=== PATIENT | female | born 1975 | race American Indian/Alaskan Native ===

== ENCOUNTER 2017-11-16 19:42 | Emergency (ER) | payer OTHER ==
[2017-11-16 20:12] VITALS: TEMP 98.3; O2SAT 99
--- NOTE | 2017-11-16 21:14 | C.PDOC ---
Addendum entered and electronically signed by Meghan Aguilar PA 11/16/17 23:20: History Of Present Illness 42 y/o female with no significant PMHx, presents to the ED for evaluation of right shoulder pain developed just prior to arrival while at work. Patient reports that she was trying to reach something on a top shelf when she suddenly developed severe pain. Also states I dislocated my shoulder and was able to put it back. Presently patient appears anxious, and in a lot of pain. Otherwise patient denies any fall, obvious deformity, weakness to right arm, or sensorivascular deficits. Time Seen by Provider: 11/16/17 20:10 Chief Complaint (Nursing): Upper Extremity Problem/Injury History Per: Patient History/Exam Limitations: no limitations Onset/Duration Of Symptoms: Hrs Current Symptoms Are (Timing): Still Present Severity: Severe Exacerbating Factor(s): Strenuous Use Of Affected Area Original Note: Time Seen by Provider: 11/16/17 20:10 Chief Complaint (Nursing): Upper Extremity Problem/Injury Past Medical History Reviewed: Historical Data, Nursing Documentation, Vital Signs Vital Signs: Last Vital Signs Temp 98.3 F 11/16/17 20:09 Pulse 73 11/16/17 20:09 Resp 19 11/16/17 20:09 BP 172/103 H 11/16/17 20:09 Pulse Ox 99 11/16/17 20:09 - Medical History PMH: Asthma Family History: States: No Known Family Hx Denies: [place], CAD - Social History Hx Tobacco Use: Yes Hx Alcohol Use: Yes Hx Substance Use: Yes - Immunization History Hx Tetanus Toxoid Vaccination: No Hx Influenza Vaccination: No Hx Pneumococcal Vaccination: No Review Of Systems Except As Marked, All Systems Reviewed And Found Negative. Eyes: Negative for: Vision Change ENT: Negative for: Throat Pain Cardiovascular: Negative for: Chest Pain, Palpitations, Edema, Light Headedness Respiratory: Negative for: Shortness of Breath Gastrointestinal: Negative for: Nausea, Vomiting, Abdominal Pain Musculoskeletal: Positive for: Shoulder Pain Skin: Negative for: Rash Neurological: Negative for: Weakness, Numbness, Altered Mental Status, Headache, Dizziness Physical Exam - Physical Exam Appears: Well, Non-toxic, No Acute Distress Skin: Normal Color, Warm, No Ecchymosis Head: Normacephalic Eye(s): bilateral: PERRL Neck: Trachea Midline, No Midline Cervical Tenderness, No Paracervical Tenderness, No Step Off Deformity, Supple Chest: Symmetrical, No Deformity Cardiovascular: Rhythm Regular, No Murmur, No JVD Respiratory: No Decreased Breath Sounds, No Accessory Muscle Use, No Stridor, No Wheezing Extremity: Normal ROM (mod discomfort to Right shoulder abduction/extension due to pain), Tenderness (mod tenderness superior aspect Right shoulder), No Deformity, No Swelling Neurological/Psych: Oriented x3, Normal Speech, Normal Motor, Normal Sensation, Normal Reflexes ED Course And Treatment O2 Sat by Pulse Oximetry: 99 Pulse Ox Interpretation: Normal - Other Rad Right shoulder X-Ray: Interpreted by Me, Viewed By Me Interpretation: (-) acute fx or dislocation, (+) calcification Progress Note: On re-eval, pt is faebrile, hemodynamicaly stable. Non-toxic. Ambulatory in ED with stable gait. Neck: SUpple, (-) JVD, (-) carotid bruits, (-) midline tenderness. Lungs: CTA B/L, BS equyal B/L. CVS: (+)S1S2, reg, (-) murmur. Abd: benign. Right shoulder: mild discomofrt to Right shoulder extension/abduction due to pain, no neurovascular deficits distally to injury, no defomrity.,. Neurologicaly intact. Rt shoulder xray (-) acute fx or dislocation. Sling applied to Right arm. Noted high BP on triage. Pt denies previou shx of HTN, denies taking medication. Pt sts, " very worry about my shoulder now". Pt advised to F/U with PMD in 1-2 dyas to re-checl BP. return to ed at any time if at [place] worsening or new changes. Pt understand and agrees with plan. Disposition Counseled Patient/Family Regarding: Studies Performed, Diagnosis, Need For Followup, Rx Given - Disposition Referrals: [facility] [Outside] Bryce Greer MD [Staff Provider] - Disposition: HOME/ ROUTINE Disposition Time: 21:17 Condition: STABLE Additional Instructions: Sling for 1 week Take pain medication as prescribed Follow up with Orthopedist in 2-3 days for re-evaluation. Follow up with PMD to re-check Blood pressure return to Ed at any time if any worsening or new changes. Prescriptions: traMADol [Ultram] 50 mg PO TID #7 tab Instructions: Shoulder Sprain, Shoulder Dislocation, High Blood Pressure (DC) Forms: [facility] (Liberian), Work Excuse - Clinical Impression Clinical Impression: Sprain of shoulder, Hypertension
[2017-11-16 21:22] VITALS: BP 170/100; PULSE 80; RESP 18
--- NOTE | 2017-11-17 09:16 | RAD ---
Date of service: 11/16/2017 PROCEDURE: Radiographs of the Right Shoulder HISTORY: injury COMPARISON: No prior. FINDINGS: BONES: No fracture JOINTS: . Glenohumeral and acromioclavicular osteoarthritis. SOFT TISSUES: 5 mm calcification-rotator cuff calcific tendinopathy and/or calcific bursitis. OTHER FINDINGS: None. IMPRESSION: No fracture or lytic lesion. 5 mm calcification-rotator cuff calcific tendinopathy and/or calcific bursitis. Arthrosis glenohumeral joint most notably. Comments: Study marked for PA review .
== END 2017-11-16 21:46 | disposition home or self-care (01) ==
LOC: C.ER 19:42
DX: S43.401A Unspecified sprain of right shoulder joint, initial encounter (principal); X50.0XXA Overexertion from strenuous movement or load, initial encounter; Y92.89 Other specified places as the place of occurrence of the external cause; Y99.0 Civilian activity done for income or pay; I10 Essential (primary) hypertension